=== PATIENT | female | born 1985 | race Caucasian/White ===

== ENCOUNTER 2017-08-11 05:06 | Emergency (ER) | payer MEDICAID ==
[2017-08-11 06:18] VITALS: BP 121/75
== END 2017-08-11 06:18 | disposition home or self-care (01) ==
LOC: ED 05:06
DX: S81.812A Laceration without foreign body, left lower leg, initial encounter (principal); W45.8XXA Other foreign body or object entering through skin, initial encounter; Y93.89 Activity, other specified; Y92.89 Other specified places as the place of occurrence of the external cause; Y99.8 Other external cause status
CPT/HCPCS: J1885